=== PATIENT | male | born 1965 | race Caucasian/White ===

== ENCOUNTER → 2020-05-22 | Outpatient (CLI) | payer OTHER ==
[~2020-05-22] MED LIST: ASCRIPTIN325 MG PO; BACTRIM DS 8001 TA1 PO; DARVOCET N 1001 TAB PO; DAYPRO600 MG PO; FLEXERIL10 MG PO; HYDROCODONE BIT1 T11 PO; MEDROL DOSEPAK4 MG PO; MOTRIN800 MG PO; NAPROSYN500 MG PO; NAPROXEN250 MG PO; NASAL SPRAY 1515 ML NS; Nizoral 2%15 GM PO; ROBITUSSIN DM 105 ML PO; ULTRAM50 MG PO; VICODIN 5/500 505 MG PO; ZITHROMAX250 MG PO; ZYRTEC10 M1 PO
== END | disposition home or self-care (01) ==
LOC: US 10:00
PROVIDERS: ATTEND Nurse Practitioner Family
DX: R22.1 Localized swelling, mass and lump, neck (principal); N63.0 Unspecified lump in unspecified breast; N64.59 Other signs and symptoms in breast